=== PATIENT | male | born 1950 | race Caucasian/White ===

== ENCOUNTER 2022-02-14 05:16 | Day surgery (SDC) | payer MEDICARE, BC ==
[2022-02-06 15:02] LABS: BASOPHILS # (AUTO) 0.1 X10'3 (0-0.2); BASOPHILS % (AUTO) 1.1 % (0-1); EOSINOPHILS # (AUTO) 0.2 X10'3 (0-0.9); EOSINOPHILS % (AUTO) 4.3 % (0-6); LYMPHOCYTES # (AUTO) 1.6 X10'3 (1.1-4.8); LYMPHOCYTES % (AUTO) 30.5 % (21-51); MEAN CORPUSCULAR HEMOGLOBIN 32.9 PG (27.0-31.0); MEAN CORPUSCULAR VOLUME 94.2 FL (78-98); MEAN PLATELET VOLUME 10.7 FL (7.4-10.4); MONOCYTES # (AUTO) 0.7 X10'3 (0-0.9); MONOCYTES % (AUTO) 12.6 % (2-12); NEUTROPHILS # (AUTO) 2.7 X10'3 (1.8-7.7); NEUTROPHILS % (AUTO) 51.5 % (42-75); PRE OP HEMATOCRIT 44.3 % (42.0-52.0); PRE OP HEMOGLOBIN 15.5 g/dL (14.0-17.9); PRE OP PLATELET COUNT 145 X10'3 (140-440); RED CELL DISTRIBUTION WIDTH 13.3 % (11.5-14.5)
[2022-02-06 15:16] LABS: ALBUMIN 3.9 G/DL (3.4-5.0); ALBUMIN/GLOBULIN RATIO 1.1 (1.1-1.5); ALKALINE PHOSPHATASE 72 IU/L (46-116); BLOOD UREA NITROGEN 21 MG/DL (7-18); BUN/CREATININE RATIO 14.3 (5.4-32.0); CALCIUM 9.1 MG/DL (8.5-10.1); CHLORIDE 107 MMOL/L (99-107); CREATININE 1.47 MG/DL (0.60-1.10); PRE OP ALT 29 U/L (30-65); PRE OP ANION GAP 11 (8-16); PRE OP AST 24 U/L (10-37); PRE OP GLUCOSE 130 MG/DL (70-104); PRE OP POTASSIUM 3.7 MMOL/L (3.4-5.1); PRE OP SODIUM 141 MMOL/L (135-145); TOTAL CARBON DIOXIDE 23.1 MMOL/L (24-32); TOTAL PROTEIN 7.3 G/DL (6.4-8.2); eGFR 47 ML/MIN
[~2022-02-14] VITALS: Ht 177.8 cm; Wt 109.8 kg
[2022-02-14] VITALS (15 sets, daily range): BP systolic 89–145; BP diastolic 48–77
[~2022-02-14 05:16] MED LIST: ALLO100T PO; ASPI-1264 PO; ATOR40TA PO; CHOL10006 PO; HYDR12.55 PO; METO50TA7 PO; MONT-40 PO; OLME20TA74 PO; OMEP20CA16 PO; TURMERIC/GINGER PO; UBID100C45 PO; VITA400T10 PO; ZINC100T2 PO; ringers solution, lacted 1,000 ML IV SCH
[2022-02-14] MEDS ORDERED: ceFAZolin inj. 2,000 MG in dextrose 5%-water 100 ML IV ONE (05:30)
[2022-02-14] MEDS ORDERED: tranexamic acid inj. 1,000 MG in normal saline IV soln 100ML IV ONE (05:30)
[2022-02-14] MEDS ORDERED: acetaminophen 325mg tablet PO ONE (05:30)
[2022-02-14] MEDS ORDERED: oxyCODONE SR 10mg (sust. release) tab -2 tabs (20mg) PO ONE (05:30)
[2022-02-14] MEDS ORDERED: famotidine 20mg tablet PO ONE (05:30)
[2022-02-14] MEDS ORDERED: albuterol 2.5 MG/3 ML nebule NEB ONE (05:30)
[2022-02-14] MEDS ORDERED: gabapentin 300mg capsule PO ONE (05:30)
[2022-02-14] MEDS ORDERED: DOCUMENT DATE & TIME OF BETA-BLOCKER PO ONE (05:30)
[2022-02-14] MEDS ORDERED: metoclopramide 5 mg/ml inj IV ONE (05:30)
[2022-02-14] MEDS ORDERED: vancomycin 1,500 MG in NS 300ml IV soln IV ONE (05:30)
[2022-02-14] MEDS ORDERED: celeCOXIB 100mg capsule PO ONE (05:30)
--- NOTE | 2022-02-14 05:30 | NUR ---
CSM: PATIENT PEDAL PULSES PRESENT. PATIENT DID NOT WATCH THE VIDEO. MUPIROCIN CREAM WAS NOT ORDERED FOR THIS PATIENT. EDUCATED PATIENT ON THE USE OF THE INCENTIVE SPIROMETER AND ITS IMPORTANCE.
[2022-02-14] MEDS ORDERED: HYDROcodone/acetaminophen 10/325mg tab PO PRN ×2 (06:20)
[2022-02-14] MEDS ORDERED: magnesium hydroxide 30ml (MOM) UD suspension PO PRN (06:20)
[2022-02-14] MEDS ORDERED: bisacodyl 10mg suppository rectal RC PRN (06:20)
[2022-02-14] MEDS ORDERED: naloxone 0.4 mg/ml inj IV PRN (06:20)
[2022-02-14] MEDS ORDERED: ondansetron/PF 4mg/2ml inj IV PRN ×2 (06:20→08:00)
[2022-02-14] MEDS ORDERED: diphenhydrAMINE 25mg capsule PO PRN ×2 (06:20)
[2022-02-14] MEDS ORDERED: HYDROmorphone 1 mg/ml syringe IV PRN (06:20)
[2022-02-14] MEDS ORDERED: HYDROmorphone inj. 0.5 MG/0.5 ML DISP.SYRIN IV PRN (06:20)
[2022-02-14] MEDS ORDERED: acetaminophen 325mg tablet PO PRN (06:20)
[2022-02-14] MEDS ORDERED: ketorolac trometh. 30mg/ml inj. ONE (06:40)
[2022-02-14] MEDS ORDERED: vancomycin 1,000mg inj ONE (06:41)
[2022-02-14] MEDS ORDERED: cloNIDine hcl/PF 100mcg/ml inj ONE (06:41)
[2022-02-14] MEDS ORDERED: BUPIVAcaine/PF 5 mg/ml 10ml ONE (06:41)
[2022-02-14] MEDS ORDERED: epiNEPHrine 1 mg/ml inj ONE (06:41)
[2022-02-14] MEDS ORDERED: ROPIVAcaine 0.5% (5mg/ml) 30ml vial ONE ×2 (06:47→08:46)
[2022-02-14] MEDS ORDERED: fentaNYL/PF 50MCG/1 ML 2ML syringe ONE (07:03)
[2022-02-14] MEDS ORDERED: MIDAZolam 1 MG/ML 5ML VIAL ONE (07:04)
[2022-02-14] MEDS ORDERED: morphine 2 MG/ML inj. syringe IV PRN (08:00)
[2022-02-14] MEDS ORDERED: meperidine/PF 25mg/ml syringe IV PRN ×3 (08:00)
[2022-02-14] MEDS ORDERED: morphine 4 MG/ML inj SYRINge IV PRN (08:00)
[2022-02-14] MEDS ORDERED: ROPIVAcaine 0.2% (10 MG/5 ML) BOLUS INJECTION ADDCANAL PRN (08:00)
[2022-02-14] MEDS ORDERED: ringers solution, lacted 1,000 ML IV SCH (08:00)
[2022-02-14] MEDS ORDERED: proCHLORperazine 10 MG/2 ml inj IV PRN (08:00)
--- NOTE | 2022-02-14 08:55 | NUR ---
Received from OR via BED, accompanied by Anesthesiologist and report given by Anesthesiologist. PATIENT WAKING UP, NO S/S OF PAIN, V/S WNL, SCD ON, 20G TO rUE, CAMILLA drsg to RIGHT KNEE CDI with ON Q BALL AT 2ML/HR and camilla dressing cdi.
[2022-02-14] MEDS ORDERED: ROPIVAcaine 0.2%/PF PUMP/bolus 545 ML ADDCANAL SCH (10:00)
--- NOTE | 2022-02-14 10:38 | NUR ---
PT here to work w/ patient
--- NOTE | 2022-02-14 11:06 | NUR ---
patient passed PT eval
[2022-02-14] MEDS ORDERED: tranexamic acid inj. 1,100 MG in normal saline 100ml IV soln 89 ML IV ONE (12:00)
[2022-02-14] MEDS ORDERED: potassium cl 20mEq in 1/2 NS 1,000 ML IV SCH (12:00)
--- NOTE | 2022-02-14 14:05 | NUR ---
PATIENT A&OX4, STATES PAIN UNDER CONTROL, V/S WNL, SCD OFF, 18G TO LUE D/C, [facility]ILL[facility] drsg to RIGHT KNEE CDI with ON Q BALL AT 4ML/HR. I HAVE REVIEWED D/C INSTRUCTION CAMILLA DRESSING MANAGMENT AND D/C AND ON Q MANAGMENT AND D/C AND PATIENT WAS GIVEN HANDOUTS AND D/C INSTRUCTIONS FOR EDUCATION OF THIS AND HAS VERBALIZED UNDERSTANDING. PATIENT D/C HOME WITH ALL BELONGINGS AND HIS GAVE TRANSPORT.
[2022-02-14] MEDS ORDERED: cefazolin/dext.iso 2gm/100ml 100 ML IV SCH (16:00)
[2022-02-14] MEDS ORDERED: VANCOMYCIN 1,500MG inj. 1,500 MG in normal saline 500ml IV soln 300 ML IV ONE (19:00)
[2022-02-14] MEDS ORDERED: sennosides 8.6mg tablet PO SCH (21:00)
[2022-02-14] MEDS ORDERED: gabapentin 300mg capsule PO SCH (21:00)
[2022-02-15] MEDS ORDERED: multivitamins, therapeutics tablet PO SCH (08:00)
[2022-02-15] MEDS ORDERED: ascorbic acid 500mg tablet PO SCH (08:00)
[2022-02-15] MEDS ORDERED: montelukast 10mg tablet PO SCH (08:00)
[2022-02-15] MEDS ORDERED: pantoprazole 40mg Tablet.DR PO SCH (08:00)
[2022-02-15] MEDS ORDERED: losartan 50mg tablet PO SCH (08:00)
[2022-02-15] MEDS ORDERED: allopurinol 100mg tablet PO SCH (08:00)
[2022-02-15] MEDS ORDERED: metoprolol succinate 25mg (24-HOUR) SR. Tablet PO SCH (08:00)
[2022-02-15] MEDS ORDERED: atorvastatin 20mg tablet PO SCH (08:00)
[2022-02-15] MEDS ORDERED: HYDROchlorothiazide 12.5mg capsule PO SCH (08:00)
[2022-02-15] MEDS ORDERED: aspirin 325mg tablet PO SCH (08:30)
[2022-02-15] MEDS ORDERED: celeCOXIB 100mg capsule PO SCH (20:00)
== END 2022-02-14 14:05 | disposition home or self-care (01) ==
LOC: PAS 05:16 → PAS IN 06:23 → UNDOADMIN 06:23
PROVIDERS: ATTEND Orthopaedic Surgery
DX: M17.11 Unilateral primary osteoarthritis, right knee (principal); Z79.899 Other long term (current) drug therapy; G89.18 Other acute postprocedural pain; Z90.49 Acquired absence of other specified parts of digestive tract; Z98.890 Other specified postprocedural states; I10 Essential (primary) hypertension; M19.90 Unspecified osteoarthritis, unspecified site
CPT/HCPCS: 27447; 36415; 64447; 73560; 76942; 80053; 82948; 85025; 86885; 86900; 86901; 87081; 97116; 97161; 97530; C1713; C1776; J0171; J0690; J0735; J1885; J2250; J2765; J2795; J3010; J3370; J3490; J7030; J7040; J7060; J7120; Z7506; Z7508; Z7512; A4215; A7000